=== PATIENT | male | born 1960 | race Caucasian/White ===

== ENCOUNTER → 2022-07-23 13:44 | Outpatient (CLI) | payer MEDICARE, SELFPAY ==
[2022-07-23 14:53] LABS: Basophils # 0.1 K/mm3 (0-0.2); Basophils % 1.5 % (0.1-2.0); Eosinophils # 0.7 K/mm3 (0.0-0.4); Eosinophils % 11.6 % (0.1-12.0); Hematocrit 42.3 % (42.0-52.0); Hemoglobin 13.3 g/dL (14.1-18.0); Lymphocytes # 1.2 K/mm3 (0.7-4.5); Lymphocytes % 20.3 % (10-50); Mean Corpuscular HGB Conc 31.6 g/dL (31.8-35.4); Mean Corpuscular Hemoglobin 26.8 pg (27.0-31.2); Mean Platelet Volume 8.6 fl (7.4-10.4); Monocytes # 0.7 K/mm3 (0.1-1.0); Monocytes % 12.2 % (1.7-9.3); Neutrophils # 3.2 K/mm3 (1.8-7.8); Neutrophils % 54.4 % (37.0-80.0); Platelet Count 319 K/mm3 (142-424); Red Blood Count 4.97 M/mm3 (4.60-6.20); Red Cell Distribution Width 17.1 % (11.5-17.5); White Blood Count 5.9 K/mm3 (4.8-10.8)
[2022-07-23 15:17] LABS: Alanine Aminotransferase 24 U/L (12-78); Albumin/Globulin Ratio 1.2 (1.1-1.8); Alkaline Phosphatase 147 U/L (38-126); Anion Gap 12.8 mEq/L (5-15); Aspartate Amino Transferase 28 U/L (17-59); Bilirubin,Total 0.4 mg/dl (0.2-1.3); Blood Urea Nitrogen 17 mg/dl (9-20); Calcium 8.9 mg/dl (8.4-10.2); Carbon Dioxide 23 mmol/L (22.0-30.0); Chloride 105 mmol/L (98-107); Estimated Glomerular Filt Rate 75 ml/min (>60); GFR (African American) 91 ML/MIN (>60); Globulin 3.4 g/dL (1.3-3.2); Glucose 101 mg/dl (74-100); Potassium 4.8 mmoL/L (3.5-5.1); Sodium 136 mmol/L (136-145); Total Protein,Serum 7.4 g/dl (6.3-8.2)
== END ==
PROVIDERS: PCP Family Medicine; Visit Provider Family Medicine
DX: G62.9 Polyneuropathy, unspecified (principal); I25.10 Atherosclerotic heart disease of native coronary artery without angina pectoris
CPT/HCPCS: 80053; 85025

== ENCOUNTER 2024-09-29 10:56 | Outpatient (CLI) | payer MEDICARE, SELFPAY ==
[2024-09-29 18:00] LABS: Basophils # 0.1 K/mm3 (0-0.2); Eosinophils # 0.4 Kmm3 (0.0-0.4); Eosinophils % 4.7 % (0.1-12.0); Hematocrit 45.9 % (42.0-52.0); Hemoglobin 15.2 g/dL (14.1-18.0); Immature Granulocytes # 0.05 10^3uL; Immature Granulocytes % 0.6 %; Lymphocytes # 1.3 K/mm3 (0.7-4.5); Mean Corpuscular HGB Conc 33.1 g/dL (31.8-35.4); Mean Corpuscular Hemoglobin 31.5 pg (27.0-31.2); Mean Corpuscular Volume 95.2 fl (80-94); Mean Platelet Volume 10.6 fl (7.4-10.4); Monocytes # 0.5 K/mm3 (0.1-1.0); Monocytes % 6.4 % (1.7-9.3); Neutrophils # 5.5 K/mm3 (1.8-7.8); Neutrophils % 71.3 % (37.0-80.0); Nucleated Red Blood Cells # 0 10^3/uL; Nucleated Red Blood Cells % 0 %; Platelet Count 249 K/mm3 (142-424); Red Blood Count 4.82 M/mm3 (4.60-6.20); Red Cell Distribution Width 14.2 % (11.5-17.5); Red Cell Distribution Width-SD 50.1 fL; White Blood Count 7.8 K/mm3 (4.8-10.8)
[2024-09-29 18:37] LABS: Alanine Aminotransferase 16 U/L (12-78); Albumin Level 4.1 g/dl (3.5-5.0); Albumin/Globulin Ratio 1.5 (1.1-1.8); Alkaline Phosphatase 64 U/L (38-126); Anion Gap 10.8 mEq/L (5-15); Aspartate Amino Transferase 21 U/L (17-59); Bilirubin,Total 0.4 mg/dl (0.2-1.3); Blood Urea Nitrogen 32 mg/dl (9-20); Calcium 9.5 mg/dl (8.4-10.2); Carbon Dioxide 19 mmol/L (22.0-30.0); Chloride 110 mmol/L (98-107); Cholesterol 194 mg/dl (140-200); Estimated Glomerular Filt Rate 55 ml/min (>60); GFR (African American) 67 ML/MIN (>60); Globulin 2.7 g/dL (1.3-3.2); Glucose 105 mg/dl (74-100); HDL Cholesterol 39 mg/dl (40-60); Potassium 5.8 mmoL/L (3.5-5.1); Sodium 134 mmol/L (136-145); Total Protein,Serum 6.8 g/dl (6.3-8.2); Triglycerides 228 mg/dl (30-150); VLDL Cholesterol 46 mg/dL (0-40)
[2024-09-29 18:53] LABS: Direct LDL Cholesterol 114.99 mg/dL (100-129)
[2024-09-29 19:14] LABS: Prostate Specific Ag Screen 0.3 ng/ml (0.0-4.0)
[2024-09-29 20:36] LABS: HIV Combo NEGATIVE (Negative)
[2024-09-29 20:44] LABS: Hepatitis C Ab Qual. W/ RFX NEGATIVE (Negative)
== END 2024-09-29 23:59 | disposition home or self-care (01) ==
LOC: LAB.DROPOF 10-03 10:57
PROVIDERS: PCP Family Medicine; Visit Provider Family Medicine
DX: Z00.00 Encounter for general adult medical examination without abnormal findings (principal); Z12.5 Encounter for screening for malignant neoplasm of prostate; Z11.4 Encounter for screening for human immunodeficiency virus [HIV]; Z11.59 Encounter for screening for other viral diseases; I11.9 Hypertensive heart disease without heart failure; I25.10 Atherosclerotic heart disease of native coronary artery without angina pectoris
CPT/HCPCS: 80053; 80061; 85025; 86803; 87389; G0103

== ENCOUNTER 2025-04-30 10:40 | Outpatient (CLI) | payer MEDICARE, SELFPAY ==
[2025-04-30 17:34] LABS: Albumin Level 3.9 g/dl (3.5-5.0); Chloride 105 mmol/L (98-107); Potassium 4.9 mmoL/L (3.5-5.1); Sodium 136 mmol/L (136-145)
[2025-04-30 17:37] LABS: Alanine Aminotransferase 20 U/L (12-78); Albumin/Globulin Ratio 1.4 (1.1-1.8); Anion Gap 10.9 mEq/L (5-15); Aspartate Amino Transferase 30 U/L (17-59); Bilirubin,Total 0.3 mg/dl (0.2-1.3); Blood Urea Nitrogen 16 mg/dl (9-20); Carbon Dioxide 25 mmol/L (22.0-30.0); Creatinine,Serum 1.10 mg/dl (0.66-1.25); Estimated Glomerular Filt Rate 67 ml/min (>60); GFR (African American) 81 ML/MIN (>60); Globulin 2.8 g/dL (1.3-3.2); Total Protein,Serum 6.7 g/dl (6.3-8.2)
[2025-04-30 17:38] LABS: Alkaline Phosphatase 105 U/L (38-126); Calcium 9.3 mg/dl (8.4-10.2); Cholesterol 136 mg/dl (140-200); Glucose 101 mg/dl (74-100); HDL Cholesterol 44 mg/dl (40-60); Triglycerides 234 mg/dl (30-150)
[2025-04-30 20:57] LABS: Hemoglobin A1C 5.2 % (4.0-6.0)
--- OUTSIDE RECORDS SUMMARY | 2025-05-01 11:57 | XMS_ITS | Clinical Summary ---
Author Organization [facility] OFF[facility] Address [facility] [employer] [address] [address] Care Team Providers Care Bottom Buffer Name Role Phone Jim Hernandez MD Primary Care Provider [phone] Allergies No known active allergies Medications lisinopril (PRINIVIL;ZESTR IL) 40 mg Oral Tablet Take 40 mg by mouth daily. Active clopidogrel (PLAVIX) 75 mg Oral Tablet Take 75 mg by mouth daily. Active gabapentin (NEURONTIN) 300 mg Oral Capsule Take 600 mg by mouth 3 times daily. Active metoprolol succinate 100 mg Oral capsule,sprinkl e,ER 24hr Take 100 mg by mouth daily. Active aspirin 81 mg Oral Tablet, Delayed Release (E.C.) Take 81 mg by mouth daily. Active diphenhydrAMINE (BENADRYL) 25 mg Oral Tablet Take 25 mg by mouth every 6 hours as needed for Itching. Active ibuprofen (ADVIL;MOTRIN) 400 mg Oral Tablet Take 400 mg by mouth 2 times daily. Active fUROsemide (LASIX) 20 mg Oral Tablet Take 40 mg by mouth daily. 04/14/2021 Active amLODIPine (NORVASC) 10 mg Oral Tablet Take 10 mg by mouth nightly. 02/25/2021 Active buPROPion (WELLBUTRIN) 75 mg Oral TabletIndicatio ns:smoking cessation Take 75 mg by mouth daily. Pt taking as needed Indications: stop smoking Active oxyCODONE-aceta minophen (PERCOCET) 5-325 mg Oral Tablet Take by mouth every 6 hours as needed. Active multivitamin (THERAGRAN) Oral Tablet Take 1 Tablet by mouth daily. 30 Tablet 2 07/23/2021 Active rivaroxaban (XARELTO) 10 mg Oral Tablet Take 2.5 mg by mouth 2 times daily (with meals). Active Active Problems Patient Care Coordination No te Formatting of this note migh t be different from the original. TANG- #[id number] as expected(Dr. 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 Plan for right iliofemoral endarterectomy Peripheral arterial disease 05/08/2021 Overview (05/08/2021): H/o stent L JACQUELINE-EIA and L SFA 02/2021 at [facility] in [place], [place] by Dr. Meneses Patient reports h/o 3 run-off procedures in each lower extremity, one of them was a left retrograde pedal access at Assessment & Plan (06/19/2021 5:06 PM EST): Ischemic rest pain of the right lower extremity. R STEPHANIE 0.18, toe pressure 18. Recent CTA shows right common femoral artery occlusion and right popliteal artery occlusion. I recommend right iliofemoral endarterectomy to alleviate his ischemic rest pain and lower his risk for limb loss. He understands that if he continues to have symptoms he would require a right femoral to tibial bypass. His vein mapping on my review showed a borderline GSV on the right side He saw his outside accounting professor yesterday. We will obtain cardiac clearance from his accounting professor prior to surgery Continue aspirin, hold plavix and xarelto 5 days prior to surgery Assessment & Plan (05/08/2021 10:08 AM EST): Ischemic rest pain of the right lower extremity, non-palpable right femoral pulse Lifestyle limiting claudication of the left lower extremity with swelling OSH lower extremity angiogram findings as above We will obtain lower extremity arterial physiologic studies and arterial duplex studies, as well as vein mapping, which also help rule out a left leg DVT Given the non-palpable right femoral pulse, we will obtain CTA EMILY to better assess for inflow disease The patient will also try to obtain the images of his recent angiogram He may require lower extremity repeat endovascular intervention vs bypass Continue aspirin 81 mg daily, Plavix 75 mg daily, Xarelto 2.5 mg BID. Stop Pletal RTC in 1 month or sooner if the CTA shows an acute finding Atherosclerosis 05/08/2021 Status post insertion of iliac artery stent 04/11 Assessment & Plan (08/21/2021 12:15 PM EDT): Self expanding stent in the right external iliac artery Continue plavix and Xarelto 2.5 mg BID He is also scheduled to have carotid duplex scan ordered by his accounting professor in [place], and he was instructed to bring the report for that study to us during his next visit. Tobacco abuse 05/08/2021 Assessment & Plan (06/19/2021 4:58 PM EST): Has stopped smoking since his last visit. He noticed improved sense of taste and smell. On Wellbutrin Assessment & Plan (05/08/2021 10:12 AM EST): Down to 5 cigs/day, continues trying to quit, on Wellbutrin Left leg swelling 05/08/2021 Assessment & Plan (05/08/2021 10:11 AM EST): Differential diagnosis includes DVT vs external compression by the left iliac artery stent Will follow the vein mapping to see if he has a DVT. He is already on low dose Xarelto S/P partial colectomy 05/06/2018 Colovesical fistula 02/09/2018 Recurrent UTI 02/09/2018 Sigmoid diverticulitis Resolved Problems Problem Noted Date Diagnosed Date Resolved Date Chronic ulcer of toes, left, with necrosis of bone 07/20/2021 08/21/2021 Chronic ulcer of right heel 07/19/2021 08/21/2021 Immunizations Immunization Administration Dates Next Due Influenza Vaccine Quadrivalent PF 04/22/2018 Pneumococcal Polysaccharide 23 Valent 04/22/2018 Surgical History Surgery Date Site/Laterality Comments FINGER TRIGGER RELEASE 25 years ago ROTATOR CUFF REPAIR 05/10/2011 - 05/09/2012 CYSTOSCOPY 04/21/2018 Bilateral CYSTOSCOPY URETERAL BILATERAL CATHETER PLACEMENT ; Surgeon: Rosana Talbot MD; Location: [facility] MAIN OR; Service: Urology COLECTOMY 04/21/2018 N/A LAPAROSCOPIC MOBILIZATION OF SPLENIC FLEXURE, OPEN SIGMOID COLECTOMY, APPENDECTOMYY, LYSIS OF ADHESIONS, COLORECTAL ANASTOMOSIS; Surgeon: Bonny Arenas MD; Location: [facility] MAIN OR; Service: General APPENDECTOMY 04/21/2018 Surgeon: Bonny Arenas MD; Location: [facility] MAIN OR; Service: General HERNIA REPAIR THROMBOENDARTERECTOMY 07/22/2021 Leg/Right Right iliofemoral endarterectomy, Angiogram, Right iliac artery stenting; Surgeon: Norma Hill MD; Location: [facility] MAIN OR; Service: Vascular Medical devices from this surgery are in the Medical Devices section. 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 Family History Medical History Relation Name Comments Anesth Problems Neg Hx Social History Tobacco Use Types Packs/Day Years Used Date Smoking Tobacco: Former Cigarettes 0.2 43.1 1 06/24/1977 - 06/02/2021 Smokeless Tobacco: Never Tobacco Cessation:Ready to Q uit: Yes; Counseling Given: Yes Alcohol Use Standard Drinks/Week Comments Yes 2 (1 standard drink = 0.6 oz pur e alcohol) 3-4 beers per day Sex and Gender Information Value Date Recorded Sex Assigned at Not on file Legal Sex Male 11:42 PM EDT Gender Identity Not on file Sexual Orientation Not on file Last Filed Vital Signs Vital Sign Reading Time Taken Comments Blood Pressure 134/74 08/21/2021 11:12 AM EDT Pulse 78 08/11/2021 11:43 AM EDT Temperature 36.4 C (97.5 F) 08/11/2021 11:43 AM EDT Respiratory Rate 16 07/23/2021 1:53 PM EDT Oxygen Saturation 99% 08/11/2021 11:43 AM EDT Inhaled Oxygen Concentration - - Weight 70.9 kg (156 lb 3.2 oz) 08/21/2021 11:05 AM EDT Height 170.2 cm (5' 7 ) 08/21/2021 11:05 AM EDT Body Mass Index 24.46 08/21/2021 11:05 AM EDT Plan of Treatment Health Maintenance Due Date Last Done Comments Wellness Exam Medicare 1963 Hepatitis C Screening 1976 DTaP/TDaP/Td (1 - Tdap) 1977 Cologuard 2003 FIT 2003 Sigmoidoscopy 2003 Virtual Colonography 2003 Zoster (1 of 2) 2008 Pneumococcal Vaccine 50+ (2 of 2 - PCV) 04/22/2019 04/22/2018 Colon Cancer Screening 03/28/2021 Colonoscopy 03/28/2021 03/28/2018, 03/28/2018 COVID-19 Vaccine (1 - 2024-2 6 season) 2025 Influenza Vaccine (#1) 2025 04/22/2018 Hepatitis B Vaccine Aged Out No longe r eligible based on patient's age to complete this topic Meningococcal B Vaccine Aged Out No l onger eligible based on patient's age to complete this topic Medical Devices Implanted Type Area Exit Booth Agent Device Identifier Shelf Expiration Date Model / Serial / Lot Graft Bvn Pericard 0.8x8cm Xenosur 0.55mm Ptch Tapr Reinf - [id number] Implanted:Qty : 1 on 07/22/2021 by Norma Hill MD at [facility] Right: Femoral Artery [employer] 03/06/2027 [id number] / / [id number] Stent Vasc 8mm 60mm 80cm Slf Xpd Otw Jen Abst Pro - [id number] Implanted:Qty : 1 on 07/22/2021 by Norma Hill MD at [facility] Right: Iliac Artery [employer]:VASC DEV [id number] 12/08/2023 [id number] / / [id number] Procedures Procedure Name Priority Date/Time Associated Diagnosis Comments GMED COLONOSCOPY Routine 03/28/2018 8:40 AM EST from Last 3 Months or Most Recently Relevant to Health Maintenance Results * GMED COLONOSCOPY (03/28/2018 8:40 AM EST) 03/28/2018 8:40 AM EST Narrative [facility] - 03/28/2018 8:40 AM EST [facility] [address] [place] [address] Colonoscopy Report Date: 03/28/2018 8:40 AM Patient Name: MORGAN CARRILLO Endoscopist(s): Jesus Mccabe MD Gender: Male (age): 1960 (57) Instrument(s): C-10([id number]) Referring Physician: Rosana Talbot MD [address] [place] [address] (phone) BONNY ARENAS MD [address] [place] [address] (phone) (fax) Jim Hernandez MD [facility] [address] [place] [address] (phone) (fax) Anesthesia Provider: JOLENE Grande (Nurse travelift operator) Nurse(s): Ekta Penaloza, RN, BSN (Pre-Procedure) Flory Heller RN, BSN (Intra-Procedure) Eloise Boston RN (Post-Procedure) Angela Preciado RN, BSN (Follow up, Post-Procedure) ASA Class: P2 - 03/28/2018 7:45 AM JOLENE Grande History of Present Illness: MORGAN has been assessed and approved for moderate sedation. The History and Physical was reviewed and no changes were noted regarding medications, allergies or medical history. 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 Constitutional: Appearance: well nourished,well-developed, well groomed, in no acute distress.. ENMT: Lips/teeth/gums: normal oral mucosa, lips and gums; good dentition. Oropharynx: tongue mid line, normal movement, mucous membranes pink and moist, no oral lesions or exudate. Neck: Neck: normal ROM. Respiratory: Effort: non labored, normal effort. Auscultation: clear to ausculatation bilaterally; no wheezes, rhonchi or rales. Cardiovascular: Auscultation: normal rate and rhythm; normal S1 and S2; no murmurs, rubs or gallops. Gastrointestinal/Abdomen: Abdomen: flat, soft, nontender, nondistended, no hepatosplenomegaly, no guarding, no rebound, no masses, normal bowel sounds. Liver/Spleen: no hepatosplenomegaly. Psychiatric: Orientation: oriented to time, space and person. Mood and affect: no evidence of depression, anxiety or agitation. Procedure: The procedure, indications, preparation and potential complications were explained to the patient, who indicated understanding and signed the corresponding consent forms. This is a/an high risk patient undergoing a Diagnostic colonoscopy... MAC with IV sedation was administered by a nurse travelift operator / anesthesiologist. Continuous pulse oximetry, cardiac monitoring blood pressure and CO2 monitoring were performed. Supplemental oxygen was used. The quality of preparation was Adequate. Patient was placed in left lateral decubitus position. The colonoscope was introduced through the rectum and advanced under direct visualization until cecum, appendiceal orifice, ileo-cecal valve and terminal ileum was reached The appendiceal orifice and the ileo-cecal valve were identified.. The colonoscope was retroflexed within the rectum. Careful visualization was performed as the instrument was withdrawn. Patient tolerance to procedure was good. The procedure was not difficult. Digital rectal exam was normal Limitations/Complications: There were no apparent limitations or complications Findings: Excavated lesions Multiple non-bleeding diverticula with small openings were seen in the the left side of the colon. Diverticulosis appeared to be of moderate severity. Left colon inflammation was noted, likely related to SCAD. Multiple cold forceps biopsies were performed for histology. Protruding lesions A single sessile 1 cm polyp of benign appearance was found in the descending colon. A single-piece polypectomy was performed using a hot snare. The polyp was completely removed. No postpolypectomy bleeding noted. Small external hemorrhoids were noted. Impressions: Moderate diverticulosis of the the left side of the colon. (Biopsy). Polyp (1 cm) in the descending colon. (Polypectomy). External hemorrhoids. Plan: Colonoscopy in 3 years. Maintain a high fiber diet Colon Polyps and Colon Cancer Education Diverticulosis and Diverticulitis Education High Fiber Diet Education Result letter for pathology: Result Letter to be mailed upon review of today's pathology. If you have not heard from us in 3-4 weeks,please give us a call at [phone]. The most severe inflammation was noted at 20cm and likely related to diverticular disease. Proceed with surgery with Dr. Arenas for left colon resection. Samples: Jar # 1 : Polypectomy in the descending colon Findings: Polyp Test(s) requested: Histology Jar # 2 : Biopsy in the the left side of the colon Test(s) requested: Histology Pathology: Pathology was sent to lab, waiting for results Jesus Mccabe MD Electronically signed on 04/04/2018 8:03:42 AM by Jesus Mccabe MD Jesus Mccabe MD GI PROCEDURE ORDERABLES Edite d Result - Final [facility] [address] [place] [address], [facility] [phone] from Last 3 Months or Most Recently Relevant to Health Maintenance Insurance NAI LEAVITT MR NAI LEAVITT MR Advance Directives For more information, please contact: [phone] * Full Code (Latest Code Status on File) Date Activated Date Inactivated Comments 07/19/2021 9:32 PM 07/23/2021 8:51 PM * Full Code Date Activated Date Inactivated Comments 04/21/2018 10:48 AM 04/27/2018 6:04 PM Care Teams Bottom Buffer Relationship Specialty Start Date End Date Jim Hernandez MD PCP - General Family Medicine 01/19/18
--- OUTSIDE RECORDS SUMMARY | 2025-05-01 11:57 | XMS_ITS | Clinical Summary ---
Author Organization [facility] Address [address], [address] [place] [address] Care Team Providers Care Coal Cutter Name Role Phone Jim Hernandez MD Primary Care Provider [phone] Allergies No known active allergies Medications rivaroxaban (XARELTO) 20 MG TABS tablet Take 20 mg by mouth daily (with breakfast) Active clopidogrel (PLAVIX) 75 MG tablet Take 75 mg by mouth nightly Active gabapentin (NEURONTIN) 600 MG tablet Take 600 mg by mouth 3 times daily. Active diphenhydrAMINE (BENADRYL) 25 MG tablet Take 25 mg by mouth every 6 hours as needed for Itching Active metoprolol succinate (TOPROL XL) 100 MG extended release tablet Take 100 mg by mouth daily Active pantoprazole (PROTONIX) 40 MG tablet Take 40 mg by mouth daily Active furosemide (LASIX) 20 MG tablet Take 20 mg by mouth 2 times daily Active amiodarone (CORDARONE) 200 MG tablet Take 200 mg by mouth daily Active atorvastatin (LIPITOR) 40 MG tablet Take 40 mg by mouth nightly Active Active Problems Problem Noted Date Diagnosed Date ABLA (acute blood loss anemia) 02/17/2022 CAD (coronary artery disease) 02/17/2022 Hyperlipidemia 02/17/2022 Hypertension 02/17/2022 Hypervolemia 02/17/2022 Acute gastrointestinal bleeding 02/16/2022 Severe anemia 02/16/2022 Family History Medical History Relation Name Comments Heart Attack Brother Heart Disease Brother Coronary Art Dis Father Heart Attack Father Heart Disease Father Diabetes Mother Relation Name Status Comments Brother Father Mother Social History Tobacco Use Types Packs/Day Years Used Date Smoking Tobacco: Every Day Cigarettes 0.3 47 Started: 05/10/1978 Smokeless Tobacco: Never Tobacco Cessation:Ready to Q uit: Yes; Counseling Given: Not Answered Alcohol Use Standard Drinks/Week Comments Yes 0 (1 standard drink = 0.6 oz pur e alcohol) seldom has a beer AUDIT-C Answer Date Recorded Q1: How often do you have a drink containing alc ohol? Monthly or less 02/16/2022 Average Number of Drinks Not on file 022 Frequency of Binge Drinking Not on file 02/07 Sex and Gender Information Value Date Recorded Sex Assigned at Not on file Legal Sex Male 11:40 PM EDT Gender Identity Not on file Sexual Orientation Not on file Last Filed Vital Signs Vital Sign Reading Time Taken Comments Blood Pressure 109/64 02/18/2022 4:00 PM EDT Pulse 98 02/18/2022 5:00 PM EDT Temperature 36.4 C (97.5 F) 02/18/2022 1:49 PM EDT Respiratory Rate 15 02/18/2022 5:00 PM EDT Oxygen Saturation 96% 02/18/2022 5:00 PM EDT Inhaled Oxygen Concentration - - Weight 68.9 kg (151 lb 12.8 oz) 02/16/2022 3:30 AM EDT Height 167.6 cm (5' 6 ) 02/16/2022 3:30 AM EDT Body Mass Index 24.5 02/16/2022 3:30 AM EDT Plan of Treatment Health Maintenance Due Date Last Done Comments Lipids 1968 Depression Screen 1970 Hepatitis C screen 1976 DTaP/Tdap/Td vaccine (1 - Tdap) 1977 FIT/FOBT: Average risk 2003 Fecal-DNA (Cologuard): Average risk 2003 Sigmoidoscopy/CT colonography 2003 Shingles vaccine (1 of 2) 2008 Respiratory Syncytial Virus (RSV) or age 60 yrs+ (1 - Risk 60-74 years 1-dose series) 2018 Pneumococcal 50+ years Vaccine (2 of 2 - PCV) 04/22/2019 04/22/2018 AAA screen 2023 Annual Wellness Visit (Medicare Advantage) 05/10/2024 Flu vaccine (#1) 12/08/2024 04/22/2018 COVID-19 Vaccine (3 - 2024-2 6 season) 2025 03/14/2021, 07/15/2020 Colonoscopy 02/19/2032 02/18/2022 Colorectal Cancer Screen 02/19/2032 Pneumococcal 0-49 years Vaccine Discontinued 04/22/2018 Hepatitis A vaccine Aged Out No longe r eligible based on patient's age to complete this topic Hepatitis B vaccine Aged Out No longe r eligible based on patient's age to complete this topic Hib vaccine Aged Out No longer eligi ble based on patient's age to complete this topic Meningococcal (ACWY) vaccine Aged Out No longer eligible based on patient's age to complete this topic Meningococcal B vaccine Aged Out No l onger eligible based on patient's age to complete this topic Polio vaccine Aged Out No longer elig ible based on patient's age to complete this topic Insurance MEDICARE MEDICARE Advance Directives * Full Code (Latest Code Status on File) Date Activated Date Inactivated Comments 02/16/2022 4:26 AM 02/18/2022 9:21 PM Healthcare Agents on File Name Relationship Healthcare Agent [facility] p Communication Johnny Carrillo Child Primary Decision Maker Care Teams Coal Cutter Relationship Specialty [place] [address] [place] [address] [address] PCP - General Family Medicine 02/16/22
== END 2025-04-30 23:59 | disposition home or self-care (01) ==
LOC: LAB.DROPOF 05-01 11:54
PROVIDERS: PCP Family Medicine; Visit Provider Nurse Practitioner
DX: I25.10 Atherosclerotic heart disease of native coronary artery without angina pectoris (principal); I10 Essential (primary) hypertension; I73.9 Peripheral vascular disease, unspecified; R73.01 Impaired fasting glucose
CPT/HCPCS: 80053; 80061; 83036